=== PATIENT | male | born 1985 | race Caucasian/White ===

== ENCOUNTER 2018-05-11 13:56 | Emergency (ER) | payer BC ==
[~2018-05-11] VITALS: Ht 190.5 cm; Wt 70.0 kg
[2018-05-11 17:19] LABS: APPEARANCE CLEAR ((CLEAR)); BILIRUBIN NEGATIVE; BLOOD MODERATE; COLOR YELLOW ((YELLOW)); GLUCOSE (STRIP) NEGATIVE; KETONES NEGATIVE; LEUKOCYTES NEGATIVE; NITRITE NEGATIVE; PROTEIN (STRIP) NEGATIVE; SPECIFIC GRAVITY 1.024 (1.000-1.030); UROBILINOGEN 0.2 MG/DL (0.2-1.0)
[2018-05-11 17:33] LABS: BACTERIA NONE SEEN /HPF; EPITHELIAL CELLS RARE /HPF; MUCUS 2+ /LPF; RED BLOOD CELLS 20-30 /HPF (0-5); UCUL ADDED? YES
[2018-05-11] MEDS ORDERED: PERCOCET 5/31 TABLET PO (18:27)
[2018-05-11] MEDS ORDERED: SKELAXIN800 MG PO (18:27)
[2018-05-11] MEDS ORDERED: MEDROL DOSEPAK4 MG PO (18:27)
[2018-05-11] MEDS ORDERED: MOTRIN600 MG PO (18:28)
[2018-05-11 18:32] LABS: SOURCE URINE
[2018-05-11 19:00] VITALS: BP 121/65
[2018-05-13 11:43] LABS: CHLAMYDIA TRACHOMATIS NEGATIVE; NEISSERIA GONORRHOEAE NEGATIVE
== END 2018-05-11 19:01 | disposition home or self-care (01) ==
LOC: EME 13:56
PROVIDERS: Physician Assistant
DX: M51.17 Intervertebral disc disorders with radiculopathy, lumbosacral region (principal); R31.9 Hematuria, unspecified; Z88.0 Allergy status to penicillin; F17.200 Nicotine dependence, unspecified, uncomplicated
CPT/HCPCS: 72131; 81003; 87086; 87491; 87591; 99281; 99284; J1885